=== PATIENT | male | born 1970 | race Caucasian/White ===

== ENCOUNTER → 2022-06-28 | Outpatient (CLI) | payer OTHER | LOC: COL.RAD 09:58 | DX: Z02.71 Encounter for disability determination (principal); M19.022 Primary osteoarthritis, left elbow; Z96.622 Presence of left artificial elbow joint ==

== ENCOUNTER 2023-02-21 07:02 | Day surgery (SDC) | payer MEDICAID ==
[~2023-02-21] VITALS: Ht 172.7 cm; Wt 62.1 kg
[2023-02-21] VITALS (10 sets, daily range): BP systolic 92–119; BP diastolic 65–76; PULSE 52–63; TEMP 97.9
[~2023-02-21 07:02] MED LIST: PEPCID 20MG TAB20 MG PO
[2023-02-21 07:42] LABS: HEMATOCRIT 43.4 % (42.0-52.0); MEAN CELL VOLUME 96 fl (80.0-100.0); MEAN CORPUSCULAR HEMOGLOBIN 33 pg (27-31); MEAN CORPUSCULAR HGB CONC 35 g/dl (33.0-37.0); MEAN PLATELET VOLUME 8.9 fl (7.4-10.4); PLATELET COUNT 228 K/mm3 (130-400); RED BLOOD COUNT 4.54 M/mm3 (4.20-5.60); REDCELL DISTRIBUTION WIDTH-CV 12.4 % (11.5-14.5)
[2023-02-21 07:46] LABS: INR 0.9 (0.8-3.0); PROTHROMBIN TIME 10.4 SECONDS (9.7-12.8)
[2023-02-21 07:49] LABS: PARTIAL THROMBOPLASTIN TIME 29.7 SECONDS (26.0-37.0)
[2023-02-21 08:18] LABS: CALCIUM 9.4 mg/dL (8.4-10.2); CREATININE, serum 0.78 mg/dL (0.72-1.25); POTASSIUM 4.1 mmol/L (3.5-4.5)
[2023-02-21] MEDS ORDERED: LIPITOR 40MG TA40 MG PO (08:43)
[2023-02-21] MEDS ORDERED: ASPIRIN 81M81 MG/TA2 PO (08:43)
[2023-02-21] MEDS ORDERED: NICODERM C7 MG/PATCH TD (08:44)
[2023-02-21] MEDS ORDERED: MAG-OX 400400 MG/TAB PO (08:44)
[2023-02-21] MEDS ORDERED: INDERAL40 MG PO (08:45)
[2023-02-21] MEDS ORDERED: MAXALT10 MG PO (08:46)
[2023-02-21] MEDS ORDERED: IMITREX50 MG PO (08:46)
[2023-02-21] MEDS ORDERED: ZANAFLEX2 MG PO (08:47)
[2023-02-21] MEDS ORDERED: B-121000 MCG PO (08:48)
[2023-02-21] MEDS ORDERED: VITAMIN D362.5 MC1 PO (08:49)
--- NOTE | 2023-02-21 09:27 | NUR ---
SEE MERGE DOCUMENTATION FOR MEDICATION ADMINISTRATION AND INTRA/POST PROCEDURE SEDATION ASSESSMENTS. PATIENT GUATEMAL[place] SPEAKING ONLY. ULTRASOUND TECHNOL UTILIZED FOR MEDICAL STAFF TO PATIENT COMMUNICATION.
--- NOTE | 2023-02-21 13:42 | NUR ---
pt tolerated recovery period well. vs remained within the pt's normal limits and pt was assisted to main lobby via wheelchair upon discharge. pt's right radial dressing was clean dry and intact and free from signs of bleeding and hematoma upon discharge. pt verbalized understanding of discharge instructions and was free from acute concerns and complaints upon discharge.
== END 2023-02-21 13:00 | disposition home or self-care (01) ==
LOC: COL.CAR 07:02
PROVIDERS: Internal Medicine Cardiovascular Disease
DX: I25.10 Atherosclerotic heart disease of native coronary artery without angina pectoris (principal); E78.5 Hyperlipidemia, unspecified; F17.210 Nicotine dependence, cigarettes, uncomplicated
CPT/HCPCS: J1644; J2250; J3010